=== PATIENT | female | born 1950 | race Asian ===

== ENCOUNTER 2019-02-28 07:49 | Emergency (ER) | payer MEDICARE ==
[~2019-02-28] VITALS: Ht 154.9 cm; Wt 65.8 kg
[~2019-02-28 07:49] MED LIST: ATEN50TA8 PO; SIMV20TA1 PO
[2019-02-28 08:04] VITALS: BP 138/74
[2019-02-28] MEDS ORDERED: ASPI-1129 PO (08:11)
[2019-02-28] MEDS ORDERED: ATEN25TA7 PO (08:13)
--- NOTE | 2019-02-28 08:15 | NUR ---
PT PLACED IN BED 11.
[2019-02-28] MEDS ORDERED: NACL 0.9% 1,000 ML IV SCH (08:19)
[2019-02-28] MEDS ORDERED: NACL 0.9% 1,000 ML IV ONE (08:19)
[2019-02-28] MEDS ORDERED: FAMOTIDINE 20 MG/2 ML VIAL IVP ONE (08:20)
[2019-02-28] MEDS ORDERED: PROMETHAZINE 25 MG/ML VIAL IM ONE (08:20)
[2019-02-28] MEDS ORDERED: MECLIZINE 25 MG TAB PO ONE (08:20)
[2019-02-28] MEDS ORDERED: ONDANSETRON 4 MG/2 ML VIAL IVP ONE (08:20)
--- NOTE | 2019-02-28 08:22 | NUR ---
BROUGHT IN BY AND SON PT AWOKE WITH REPEATED N/V AND ROOM SPINNING---KEEPS OU CLOSED 2 TO ROOM SPINNING. UNABLE TO AMBULATE WITHOUT ASSISTANCE AT THIS TIME. FULL CLEAR SPEECH, NO FACIAL ASYMMETRY, EQUAL PROCEDURE ANALYST, TONGUE MIDLINE
[2019-02-28 08:55] LABS: BASOPHILS # (AUTO) 0.1 K/uL (0.00-0.22); BASOPHILS % (AUTO) 0.8 % (0.0-2.0); EOSINOPHILS # (AUTO) 0.6 K/uL (0-0.4); EOSINOPHILS % (AUTO) 8.8 % (0.0-4.0); HEMATOCRIT 40.3 % (36-48); HEMOGLOBIN 13.5 g/dL (12.0-16.0); LYMPHOCYTES # (AUTO) 2.3 K/uL (2.5-16.5); MEAN CORPUSCULAR HEMOGLOBIN 30 pg (27-31); MEAN CORPUSCULAR HGB CONC 34 g/dL (33-37); MEAN CORPUSCULAR VOLUME 90.1 fL (80-94); MONOCYTES # (AUTO) 0.3 K/uL (0.8-1.0); MONOCYTES % (AUTO) 4.7 % (1.7-9.3); NEUTROPHILS # (AUTO) 3.5 K/uL (1.8-7.7); NEUTROPHILS % (AUTO) 51.7 % (42.2-75.2); PLATELET COUNT (AUTO) 276 K/uL (140-450); RED BLOOD CELL COUNT(AUTO) 4.47 MIL/uL (4.20-5.40); RED CELL DISTRIBUTION WIDTH 13.4 % (11.6-13.7); WHITE BLOOD COUNT (AUTO) 6.8 K/uL (4.8-10.8)
--- NOTE | 2019-02-28 09:07 | NUR ---
CXR AT BEDSIDE--PT TO CT SCAN VIA [facility]
[2019-02-28 09:15] LABS: PROTHROMBIN TIME 9.3 secs (10.8-13.4)
[2019-02-28 09:32] LABS: ALBUMIN 3.4 g/dL (3.4-5.0); AMYLASE 112 U/L (25-115); ANION GAP 13.7 (8-16); ASPARTATE AMINOTRANSFERASE 31 U/L (15-37); CARBON DIOXIDE 26.4 mmol/L (21-32); CHLORIDE 103 mmol/L (98-107); CREATININE 0.9 mg/dL (0.6-1.3); GFR ARICAN-AMERICAN 80 mL/min (>90); GLUCOSE 214 mg/dL (74-106); LIPASE 149 U/L (73-393); MAGNESIUM 1.7 mg/dL (1.8-2.4); POTASSIUM 3.1 mmol/L (3.5-5.1); SODIUM SERUM 140 mmol/L (136-145); TOTAL BILIRUBIN 0.7 mg/dL (0.0-1.0); UREA NITROGEN, BLOOD 16 mg/dL (7-18)
[2019-02-28 09:50] LABS: ACETONE, SERUM NEGATIVE (NEGATIVE)
[2019-02-28] MEDS ORDERED: MAG SULF 2000 MG/WATER PREMIX 50 ML IV ONE (09:55)
[2019-02-28] MEDS ORDERED: DILTIAZEM 25 MG/5 ML VIAL IVP ONE (09:55)
[2019-02-28] MEDS ORDERED: POTASSIUM CHLORIDE 10 MEQ TABER PO ONE (09:55)
[2019-02-28 10:07] LABS: APPEARANCE,URINE CLEAR (CLEAR); BILIRUBIN,URINE NEGATIVE (NEGATIVE); BLOOD, URINE 1+ (NEGATIVE); COLOR,URINE YELLOW (YELLOW); LEUKOCYTE ESTERASE ,URINE NEGATIVE (NEGATIVE); NITRITE, URINE NEGATIVE (NEGATIVE); PH,URINE 7.5 (5.0-9.0); UGLUCOSE TRACE (NEGATIVE)
--- NOTE | 2019-02-28 10:15 | NUR ---
medicated for a-fib---pt educated about diltiazem admits feeling better after ns bolus
[2019-02-28 10:27] LABS: WBC,URINE 0-5 /HPF (0-5)
--- NOTE | 2019-02-28 12:00 | NUR ---
resting with ou closed, no grimace no batsheva noted---will continue to observe for any changes awaits transport to [place]
[2019-02-28] MEDS ORDERED: ASPIRIN 325 MG TAB PO ONE (12:05)
[2019-02-28] MEDS ORDERED: ASPIRIN 325 MG TAB ONE (12:15)
--- NOTE | 2019-02-28 14:00 | NUR ---
denies headache denies generalized weakness feeling---up to restroom
[2019-02-28 14:47] LABS: FREE T4 (FREE THYROXINE) 1.12 ng/dL (0.76-1.46); THYROID STIMULATING HORMONE 0.63 uIU/mL (0.34-3.74)
--- NOTE | 2019-02-28 16:10 | NUR ---
pt resting with ou closed, no s/s resp distress----repositioned up in [facility] for comfort continues to wait for transport
[2019-02-28 17:30] VITALS: BP 112/60
[2019-03-01] MEDS ORDERED: ASPIRIN 325 MG TABEC PO SCH (09:00)
== END 2019-02-28 17:30 | disposition short-term general hospital (02) ==
LOC: MED 07:49
DX: I49.9 Cardiac arrhythmia, unspecified (principal); I48.91 Unspecified atrial fibrillation; R42 Dizziness and giddiness; R11.10 Vomiting, unspecified; R55 Syncope and collapse; E87.2 Acidosis; E87.6 Hypokalemia; E83.42 Hypomagnesemia; I10 Essential (primary) hypertension; Z79.82 Long term (current) use of aspirin; Z79.899 Other long term (current) drug therapy
CPT/HCPCS: 36415; 70450; 71045; 80053; 81001; 81025; 82009; 82150; 82948; 83605; 83690; 83735; 84439; 84443; 84479; 84484; 85025; 85610; 93005; 96361; 96365; 96366; 96372; 96375; 99291; J2405; J2550; J3475; J3490; J7030; J8597; Q0092

== ENCOUNTER 2019-03-14 20:24 | Emergency (ER) | payer MEDICARE ==
[~2019-03-14] VITALS: Ht 154.9 cm; Wt 65.8 kg
[~2019-03-14 20:24] MED LIST changes: +ASPI-1129 PO; +ATEN25TA7 PO; -ATEN50TA8 PO
[2019-03-14 20:35] VITALS: BP 116/86
--- NOTE | 2019-03-14 20:44 | NUR ---
EKG PERFORMED IN TRIAGE ROOM WITH SPOUSE AND RN PRESENT
--- NOTE | 2019-03-14 20:45 | NUR ---
TO LOBBY A/W BED, VIA WHEELCHAIR ,EKG DONE , NSR CORWIND NOTED
[2019-03-14 22:03] LABS: BASOPHILS # (AUTO) 0.1 K/uL (0.00-0.22); BASOPHILS % (AUTO) 0.4 % (0.0-2.0); EOSINOPHILS # (AUTO) 0.5 K/uL (0-0.4); EOSINOPHILS % (AUTO) 4.3 % (0.0-4.0); HEMATOCRIT 41.3 % (36-48); HEMOGLOBIN 13.7 g/dL (12.0-16.0); LYMPHOCYTES % (AUTO) 16.6 % (20.5-51.1); MEAN CORPUSCULAR HEMOGLOBIN 30 pg (27-31); MEAN CORPUSCULAR HGB CONC 33 g/dL (33-37); MEAN CORPUSCULAR VOLUME 90.2 fL (80-94); MONOCYTES # (AUTO) 0.4 K/uL (0.8-1.0); MONOCYTES % (AUTO) 3.4 % (1.7-9.3); NEUTROPHILS # (AUTO) 9.3 K/uL (1.8-7.7); NEUTROPHILS % (AUTO) 75.3 % (42.2-75.2); PLATELET COUNT (AUTO) 326 K/uL (140-450); RED BLOOD CELL COUNT(AUTO) 4.58 MIL/uL (4.20-5.40); WHITE BLOOD COUNT (AUTO) 12.3 K/uL (4.8-10.8)
--- NOTE | 2019-03-14 22:17 | NUR ---
PT TAKEN TO BED 7 VIA WC WITH ACCOMPANYING.
--- NOTE | 2019-03-14 22:22 | NUR ---
Dr. Polk evaluating patient at bedside.
[2019-03-14 22:23] LABS: ALBUMIN 3.7 g/dL (3.4-5.0); ANION GAP 13.6 (8-16); CARBON DIOXIDE 29.2 mmol/L (21-32); TOTAL BILIRUBIN 0.8 mg/dL (0.0-1.0)
[2019-03-14] MEDS ORDERED: NACL 0.9% 1,000 ML IV ONE (22:25)
[2019-03-14] MEDS ORDERED: ONDANSETRON 4 MG/2 ML VIAL IVP ONE (22:25)
[2019-03-14] MEDS ORDERED: MECLIZINE 25 MG TAB PO ONE ×2 (22:25→23:40)
[2019-03-14 22:34] LABS: POTASSIUM 2.8 mmol/L (3.5-5.1)
[2019-03-14] MEDS ORDERED: POTASSIUM CHLORIDE 10 MEQ TABER PO ONE (22:35)
--- NOTE | 2019-03-14 22:35 | NUR ---
68 YO F BIB PRESENTS TO ED C/O DIZZINESS, N/V X 4 HOURS. PT STATES "I THINK I HAVE FOOD POISONING." PT STATES SHE HAD A [employer]ICE FOR DINNER AROUND 1800 AND STARTED TO FEEL DIZZY AND NASEOUS ABOUT 10 MINS AFTER EATING. PT REPORTS VOMITING X 7 AT HOME. HAS NOT VOMITING SINCE HOME BUT CONTINUES TO FEEL NAUSEOUS AND DIZZY. PT DENIES FEVER, CHILLS, ABDOMINAL PAIN, DIARRHEA. -- PT AWAKE, A/O X 4. CALM, COOPERATIVE. ANSWERING QUESTIONS APPROPRIATELY. BEHAVIOR AGE APPROPRIATE. -- SKIN PINK, WARM, DRY. BREATHING EVEN, UNLABORED. VSS. PMH-- DM, HTN, HYPERLIPIDEMIA
[2019-03-14 22:48] LABS: BILIRUBIN,URINE NEGATIVE (NEGATIVE); BLOOD, URINE 2+ (NEGATIVE); COLOR,URINE YELLOW (YELLOW); LEUKOCYTE ESTERASE ,URINE NEGATIVE (NEGATIVE); NITRITE, URINE NEGATIVE (NEGATIVE); UGLUCOSE NEGATIVE (NEGATIVE)
[2019-03-14 22:57] LABS: APPEARANCE,URINE CLEAR (CLEAR)
--- NOTE | 2019-03-14 23:05 | NUR ---
MEDICATIONS ADMINISTERED ORDERED. PT EDUCATED ON RISKS/BENEFITS. PT TOLERATED WELL. WILL CONTINUE TO MONITOR.
[2019-03-14 23:16] LABS: WBC,URINE 0-5 /HPF (0-5)
--- NOTE | 2019-03-14 23:40 | NUR ---
PT REPORTS NO MORE NAUSEA BUT STATES FEELING " A LITTLE BIT DIZZY STILL". DR. FLAHERTY NOTIFIED. NEW ORDERS RECEIVED.
--- NOTE | 2019-03-14 23:45 | NUR ---
MEDICATION ADMINISTERED ORDERED. PT EDUCATED ON RISKS/BENEFITS. PT TOLERATED WELL. WILL CONTINUE TO MONITOR.
--- NOTE | 2019-03-15 00:30 | NUR ---
PT STATES SHE FEELS "MUCH BETTER" AND STATES SHE IS READY TO GO HOME. DR. FLAHERTY MADE AWARE. IV FLUIDS INFUSING. DR. FLAHERTY STATES OK TO DISCHARGE.
[2019-03-15 00:36] VITALS: BP 134/74
--- NOTE | 2019-03-15 00:36 | NUR ---
Patient discharged with v/s stable. Written and verbal after care instructions given and explained. Patient alert, oriented and verbalized understanding of instructions. Ambulatory with steady gait. All questions addressed prior to discharge. ID band removed. Patient advised to follow up with PMD. Rx of Zofran, Meclizine given. Patient educated on indication of medication including possible reaction and side effects. Opportunity to ask questions provided and answered.
== END 2019-03-15 00:36 | disposition home or self-care (01) ==
LOC: MED 20:24
DX: R11.2 Nausea with vomiting, unspecified (principal); R42 Dizziness and giddiness; E87.6 Hypokalemia; I10 Essential (primary) hypertension; Z79.82 Long term (current) use of aspirin; Z79.899 Other long term (current) drug therapy
CPT/HCPCS: 36415; 71045; 80053; 81001; 84484; 85025; 93005; 96361; 96374; 99284; J2405; J7030; J8597